=== PATIENT | male | born 1985 | race Caucasian/White ===

== ENCOUNTER → 2021-09-07 02:12 | Outpatient (CLI) | payer OTHER, SELFPAY ==
--- NOTE | 2021-09-07 | DI.RAD_ITS ---
Exam(s) XR KNEE RT 3V AP,LAT,BETTIE EXAM: XR KNEE RT 3V AP,LAT,BETTIE CLINICAL HISTORY: RT KNEE PAIN ACUTE, M25.561. TECHNIQUE: 2D digital imaging was performed. Three views. COMPARISON: No exams were available for comparison FINDINGS: BONES: There is an osteochondral defect of the lateral femoral condyle which appears chronic. No acu te fracture is present. No bony destructive lesion is seen. JOINTS: The knee is normally aligned. A joint effusion is seen. SOFT TISSUE: Normal. IMPRESSION: Joint effusion. Old osteochondral defect of the lateral femoral condyle. DATA REPOSITORY: RADIATION DOSE DELIVERED:
== END ==
PROVIDERS: PCP Nurse Practitioner Family; Visit Provider Nurse Practitioner Family
DX: M25.561 Pain in right knee (principal); M25.461 Effusion, right knee; M21.851 Other specified acquired deformities of right thigh
CPT/HCPCS: 73562

== ENCOUNTER 2021-10-26 16:39 | Emergency (ER) | payer OTHER, SELFPAY ==
[2021-10-26 16:47] VITALS: BP 151/85; PULSE 87; RESP 18; TEMP 37.6; O2SAT 98
--- NOTE | 2021-10-26 18:08 | ED.GENADUL_ITS ---
Discharge Plan Disposition Patient Disposition: HOME Condition: Stable Discharge Details Clinical Impression: Sunburn of second degree Primary Care Provider: Eugenia Buckley ED Provider: Vanessa Arriaga Home Meds and New Rx's Prescriptions: No Action No Known Home Meds Discharge Instructions Instructions: Second-Degree Burn (ED), Acute Wound Care (ED) Additional Instructions: Please keep clean and dry. You may apply topical aloe vera or similar. You may also apply bacitracin or Neosporin which he can get [id number]. Please take Tylenol or Ibuprofen with food every 4-6 hours as needed for pain and swelling. Please keep yourself hydrated. Return for any signs of infection fever. Follow up with primary care provider in 3-5 days. Return to ED sooner if any worsening or concerns. Increase oral fluids.. Referrals: Eugenia Buckley [Primary Care Provider] - 5 days Discharge Data Discharge Date/Time-TO BE ENTERED AT DEPARTURE: 10/26/21 18:29 Medical Decision Making 36-year-old male presents with second-degree sunburn with blisters drainage to h is bilateral shoulders, he does have a first-degree sunburn noted to his chest and back. Patient has no problems breathing and no other complaints at this time he is speaking in full sentences. Discussed sunburn care and blister care with patient who verbalized understanding. We will give bacitracin discussed home care and strict return instructions. Patient verbalized understanding. This text was generated using [employer] dictation system, please disregard any oddities of phrase or misspellings. HPI General Mode of arrival: ambulatory . Date/Time Provider Initiated Documentation: 10/26/21 17:45 . Limitations to Documentation: no limitations . Information obtained by: patient, RN notes reviewed and old records reviewed . HPI Narrative: 36-year-old male presents to the ER with chief complaint of second-degree sunburn with blisters to his bilateral shoulders. This occurred while out in the sun yesterday. He denies any fever chills no surrounding induration or signs of cellulitis. No other complaints at this time. Related Data Home Medications Medication Instructions Recorded Confirmed Unknown [No Known Home Meds] 10/26/21 10/26/21 Allergies Allergy/AdvReac Type Severity Reaction Status Date / Time No Known Allergies Allergy Unverified 10/26/21 16:50 General Stated Complaint: Burn LILIANA: 4 PFSH All Active Problems (Updated 10/26/21 @ 18:13 by Vanessa Arriaga NP) Sunburn of second degree (Acute) Social History Smoking/Tobacco Use Status: Current every day Tobacco Type: e-cigarettes Smoking risk assessment performed?: Yes Alcohol Intake: current Alcohol Intake frequency: 0-2 drinks per day Drug use: Never Substance use type: does not use Do you feel safe at home: Yes Do you feel safe in your relationship?: Yes Exam Skin Rashes: other (Sunburn noted) Full body images: 1. Second-degree sunburn with blisters and drainage noted top of bilateral shoulders. 2. First-degree sunburn noted to the chest and back 3. First-degree sunburn Course Vital Signs Vital signs: Vital Signs Temperature 37.6 C H 10/26/21 16:47 Pulse 87 10/26/21 16:47 Respiratory Rate 18 10/26/21 16:47 Blood Pressure 151/85 H 10/26/21 16:47 Pulse Oximetry 98 10/26/21 16:47 Temperature 37.6 C H 10/26/21 16:47 Temperature Source Temporal Artery Scan 10/26/21 16:47 Pulse 87 10/26/21 16:47 Respiratory Rate 18 10/26/21 16:47 Respiratory Effort Non-Labored 10/26/21 16:50 Blood Pressure 151/85 H 10/26/21 16:47 Blood Pressure Position Sitting 10/26/21 16:47 Pulse Oximetry 98 10/26/21 16:47 Oxygen Delivery Method Room Air 10/26/21 16:47 Oxygen Flow Rate 0 10/26/21 16:47 PAWSS Have you Been Recently Intoxicated or Drunk Within the Last 30 days?: No Have you Ever Experienced Previous Episodes of Alcohol Withdrawal?: No Have you ever Experienced Withdrawal Seizures?: No Have you ever Experienced Delirium Tremens(DT)s?: No Have you ever undergone Alcohol Rehabilitation Treatment (i.e, inpt ot outpatient treatment programs)?: No Have you ever Experienced Blackouts?: No Have you ever Combined Alcohol with other Downers within the last 90 days?: No Have you ever Combined Alcohol with any other Substance of Abuse during the last 90 days?: No Positive Blood Alcohol level on Presentation? [PCS.BAL]: No Evidence of Increased Autonomic Activity (i.e. HR>120, tremor, sweating, agitation, nausea)?: No Result: 0
[2021-10-26] MEDS: Lidocaine 2% Viscous 15 ML CUP MM (18:16)
== END 2021-10-26 18:29 | disposition home or self-care (01) ==
PROVIDERS: Emergency Provider Registered Nurse Emergency; PCP Nurse Practitioner Family
DX: L55.1 Sunburn of second degree (principal); F17.290 Nicotine dependence, other tobacco product, uncomplicated; L55.0 Sunburn of first degree; X32.XXXA Exposure to sunlight, initial encounter
CPT/HCPCS: 99282; 99281

== ENCOUNTER → 2022-02-08 02:02 | Outpatient (CLI) | payer OTHER, SELFPAY ==
--- NOTE | 2022-02-08 08:45 | DI.MRI_ITS ---
Exam(s) MR LOWER JOINT RT WO EXAM: MR LOWER JOINT RT WO CLINICAL HISTORY: RT KNEE PAIN, M25.561, SWELLING, JT EFFUSION ON X-RAY. TECHNIQUE: Multiplanar multisequence MRI was performed. COMPARISON: CR XR KNEE RT 3V AP,LAT,BETTIE from 09/07/2021 FINDINGS: BONES: There is a large osteochondral defect of the lateral femoral condyle large insitu bony fragmen t and surrounding fluid. The fragment measures 17 cm AP by 7 millimeters cephalocaudad by 14 millim eters transverse. The marrow signal is otherwise normal. JOINTS: A large joint effusion is present. There is a large partially calcified loose body seen later ally in the suprapatellar portion of the effusion which measures approximately 2 cm in length. Articular cartilage: Patellofemoral joint: Articular cartilage is unremarkable. Medial femoral tibial joint: Articular cartilage is unremarkable. Lateral femoral tibial joint: Large osteochondral defect within large insitu bony fragment. Large amount of surrounding fluid. Large amount of cartilage absent from this region. There is no cartila ge overlying the defect. Cartilage overlying the lateral tibial plateau is intact. TENDONS: Extensor mechanism: Unremarkable. Medial retinaculum: Unremarkable. Lateral retinaculum: Unremarkable. Popliteus: Unremarkable. MUSCLES: Unremarkable. MENISCI: The medial meniscus is unremarkable. The lateral meniscus is unremarkable. SOFT TISSUES: Bilobed Jeffries's cyst measuring roughly 6.5 cm in length. LIGAMENTS: Anterior Cruciate: Unremarkable. Posterior Cruciate: Unremarkable. Medial Collateral:Unremarkable. Lateral Collateral: Unremarkable. 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 Large joint effusion with loose body likely originating from the lateral femoral condyle. DATA REPOSITORY:
== END ==
PROVIDERS: PCP Nurse Practitioner Family; Visit Provider Nurse Practitioner Family
DX: M93.28 Osteochondritis dissecans other site (principal); M25.48 Effusion, other site
CPT/HCPCS: 73721

== ENCOUNTER 2022-03-25 11:08 | Day surgery (SDC) | payer OTHER, SELFPAY ==
[2022-03-25] VITALS (10 sets, daily range): BP systolic 89–152; BP diastolic 35–98; PULSE 60–74; RESP 14–22; TEMP 36.4–36.7; O2SAT 96–100; BMI 27.4
[2022-03-25] MEDS: Lactated Ringers 1,000 ML 30 ML IV (11:47)
--- NOTE | 2022-03-25 12:00 | ROE_ITS ---
Date of service: 03/25/22 Time of Service: 12:00 Operative Note Operative Note DATE OF PROCEDURE: 03/25/22 PRE-OP DIAGNOSIS: Right knee 1. Osteochondritis dissecans 2. Loose body POST-OP DIAGNOSIS: same PROCEDURE: Right knee 1. Arthroscopic loose body removal, CPT# 78596: 2x large osteochondral fragments 15 x 7 x 8 mm, 10 x 6 x 5 mm that had to be removed through a mini anteromedial arthrotomy. 2. Microfracture, CPT# 58198: Lateral femoral condyle donor site 3. Greater than 2 compartment synovectomy, CPT #74819: Patellofemoral, intercondylar, and lateral compartment SURGEON: Thai Baldwin WEIGHING STATION OPERATOR: None None ANESTHESIA TYPE: Local By Surgeon and General LMA/ETT Refer to Anesthesia Record ESTIMATED BLOOD LOSS: 5 PATHOLOGY: none sent TOURNIQUET TIME: 0 Patient was transported to: PACU Patient's condition: stable Indications: Please see complete medical record for details. Findings: Exam under anesthesia: Significant, rigid flexion contracture about 10-15 degrees. Full flexion. Palpable loose bodies through passive range of motion. Quite stiff and stable varus, valgus, Malcolm anterior drawer. Arthroscopic findings: Moderate effusion with significant abundant inflamed synovitis throughout the patellofemoral, suprapatellar, intercondylar, and lateral areas. 2 quite large osteochondral loose bodies described above. Multiple smaller chondral loose bodies. Large osteochondral defect distal central to medial aspect lateral femoral condyle. Intact lateral meniscus and ACL with some superficial fraying of both near the osteochondral lesion. Intact medial compartment. Chronic sclerotic changes at donor site and rounding and smoothing of loose bodies. Procedure Description: In the operating room, genral anesthesia was induced. The patient was positioned supine on the operating room table. All bony prominences were well- padded. Preoperative antibiotics were administered. The knee was prepped and draped in the usual sterile fashion. The correct patient, procedure, and side of the procedure were all verified prior to incision. Exam under anesthesia was performed. 10 cc of 0.25% bupivacaine containing epinephrine was infiltrated about the planned anteromedial and anterolateral kne e arthroscopy portals. The portals were established and a complete diagnostic arthroscopy was performed with relevant findings detailed above. The initial smaller of the loose bodies was encountered in the suprapatellar pouch. It had chronic changes, poor quality appearing cartilage, rounded in nature, and did not appear amenable to repair. It was grasped with a pituitary rongeur and attempted to be removed through the anteromedial portal. It did not fit at all. The portal was enlarged to accommodate the lesion and a small arthrotomy made and small hemostat used to grasp and remove this loose body. The larger loose body was later found in the lateral gutter, similarly had chronic degenerative changes, and was arthroscopically delivered to the anteromedial area and then similarly grasped and removed similarly with the hemostat. Both were placed into a sterile specimen cup, arthroscopic photo taken, and saved for the patient. The mechanical shaver was used to remove abundant inflamed synovium from the patellofemoral, intercondylar, and lateral compartments. The large defect on the lateral condyle was inspected. The bed was prepared using a curette and shaver to optimize healing the thin sclerotic wall of tissue and establishing stable cartilage margins. A 1.6 mm K wire was then used perpendicular to the lesion to drill multiple sites spanning the bed as microfracture. Appropriate release of bone marrow elements was confirmed with the inflow turned off. The mechanical shaver was used then to thoroughly go throughout the knee and remove any additional smaller loose bodies. Under direct arthroscopic visualization an 18-gauge needle was passed into the knee from superolateral into the suprapatellar pouch. The knee was copiously irrigated with arthroscopic fluid until there was a clear effluent before being drained of all fluid. The anteromedial and anterolateral portals were closed in 3-0 Monocryl in a buried interrupted fashion. 20 cc of 0.25% bupivacaine with epinephrine containing 4 mg of morphine was infiltrated into the knee through the previously placed needle. Mastisol, Steri-Strips, and 4 x 4 gauze were applied over the incisions followed by sterile soft roll. The knee was then wrapped gently with an PATRICK comressive bandage. The patient awoke from anesthesia without complication and was transferred to the recovery room in a stable condition. The flexion contracture will be challenging to treat given chronicity. The large osteochondral lesion of the lateral femoral condyle might be amenable to lateral Bio-Uni versus UKA should the patient have persistent dysfunction.
--- NOTE | 2022-03-25 13:49 | ANES.PREOP_ITS ---
General Info Date of Service Date Performed: 03/25/22 Height: 5 ft 11 in Weight: 89.2 kg Body Mass Index (BMI): 27.4 Surgical Procedure: Operation Date: 03/25/22 13:55 Proposed Procedure Side Surgeon p Knee Arthroscopy w/Loose Body Removal, Microfracture and any other indicated Meniscal, Chondral and Synovial Surgery Right Thai Baldwin MD Meds Allergies and Home Medications Allergies Allergy/AdvReac Type Severity Reaction Status Date / Time No Known Allergies Allergy Verified 03/25/22 11:18 Home Medication Medication Instructions Recorded aspirin 81 mg tablet,delayed 81 mg PO DAILY Prevent blood clot 03/25/22 release 14 days #14 tabs melatonin 5 mg chewable tablet 5 mg PO HS PRN 03/25/22 naproxen 250 mg tablet 250 - 500 mg PO BID PRN #40 tabs 03/25/22 oxycodone 5 mg tablet 5 - 10 mg PO Q4H PRN moderate to 03/25/22 severe pain #18 tabs Current Visit Medications: Current Medications Generic Name Dose Route Start Last Admin Trade Name Colemanq PRN Reason Stop Dose Admin Ringer's Solution 1,000 mls @ 30 mls/hr 03/25/22 06:00 03/25/22 11:47 IV 04/23/22 23:59 30 mls/hr [facility] Administration Cefazolin Sodium/Dextrose 2 gm in 50 mls @ 100 mls/hr 03/25/22 06:00 Ancef Duplex IVPB 03/25/22 16:00 PREOP ALEXIA IV Miscellaneous Supplies 1 each 03/25/22 06:00 Iv Access IV 04/23/22 23:59 DIRECTED ALEXIA Oxycodone HCl 0 mg 03/25/22 08:52 Oxycodone 5 Mg Tab PO Q3H PRN PRN Pain Sodium Chloride 0 ml 03/25/22 06:00 Normal Saline Flush 10 Ml Syr IV 04/23/22 23:59 PRN PRN Sodium Chloride 0 ml 03/25/22 06:00 Normal Saline 10 Ml Vial IJ 04/23/22 23:59 DIRECTED PRN Sterile Water 0 ml 03/25/22 06:00 Water,Injection,Sterile 10 Ml Vial IJ 04/23/22 23:59 DIRECTED PRN PFSH Active Problems Active Problems: Problem Status Onset Code Loose body of right knee M23.41 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 Tobacco Smoking/Tobacco Use Status: Current every day Tobacco Type: e-cigarettes Alcohol Alcohol Intake: current Alcohol intake frequency: 0-2 drinks per day Alcohol type: other Substance Use Substance use: Never Substance use type: does not use Vital Signs and Lab Results Vital Signs Most Recent Vital Signs in EMR: Most Recent Vital Signs Temp Pulse Resp BP Pulse Ox 36.6 C 74 16 147/98 H 99 03/25/22 11:24 03/25/22 11:24 03/25/22 11:24 03/25/22 11:24 03/25/22 11:24 Lab Results Blood Type / Crossmatch: No Data to Display Complete Blood Count: No Data to Display Complete Metabolic Panel: No Data to Display Liver Function Panel: No Data to Display Coagulation Panel: No Data to Display Cardiac Panel: No Data to Display Arterial Blood Gas: No Data to Display Venous Blood Gas: No Data to Display Pancreas Panel: No Data to Display Thyroid Panel: No Data to Display Infectious Disease: No Data to Display Blood Cultures: No Data to Display Toxicology Panel: No Data to Display Anesthesia Assessment and Plan Anesthesia History Personal History: No History of General Anesthesia Family History: No Family History of Anesthesia Complications Exercise Tolerance Exercise Tolerance: Metabolic Equivalents>4 Pertinent Negatives Pertinent Negatives: No Symptoms of GERD, No Major Cardiovascular Symptoms or Complaints and No Major Pulmonary Symptoms or Complaints Cardiac & Pulmonary Exam Cardiac Exam: Normal S1/S2 Heart Sounds Pulmonary Exam: Clear Bilateral Breath Sounds Implantable Cardiac Device Does patient have a Pacemaker or an ICD?: No Airway Exam Known Difficult Airway: No Mallampati Class: 1 Mouth Opening: Normal (> 3cm) Thyromental Distance: Greater than 3 cm Neck Range of Motion: Full ROM Neck Circumference: Normal Teeth Condition: Normal Dentition ASA Classification ASA Score: ASA 2 Emergency Case?: No NPO Status NPO Status: NPO Clears >2 hours, Solids >8 hours Anesthesia Plan Resuscitation Status: Full Code Anesthesia Technique: General Anesthesia Airway Planned: LMA Monitors Used: Standard Monitors
[2022-03-25] MEDS: ceFAZolin 2 GM/50 ML BAG IVPB (14:10)
[2022-03-25] MEDS: Bupivacaine 0.25% Pres-Free W/EPI 30 ML VIAL (14:48)
[2022-03-25] MEDS: MORPHine 4 MG/ML SYR (14:49)
--- NOTE | 2022-03-25 15:16 | W.PM.DSUDISC ---
Date of service: 03/25/22 Time of Service: 15:00 Discharge Plan Disposition Patient Disposition: Home Discharge Details Attending Provider: Thai Baldwin Primary Care Provider: Eugenia Buckley Home Meds and New Rx's Prescriptions: New aspirin 81 mg tablet,delayed release (DR/EC) 81 mg PO DAILY 14 Days Qty: 14 0RF naproxen 250 mg tablet 250 - 500 mg PO BID PRNQty: 40 0RF Rx Instructions: take with a meal oxycodone 5 mg tablet 5 - 10 mg PO Q4H MDD 30 mg PRN (Reason: moderate to severe pain) Qty: 18 0RF No Action melatonin 5 mg Tablet,Chewable 5 mg PO HS PRN Discharge Instructions Additional Instructions: Surgery: Right knee arthroscopy with removal of loose bodies and microfracture for osteochondritis dissecans Activity: Protected weightbearing with crutches for 6 weeks. Advance range of motion as comfort allows. Recommend avoiding sports, pivoting, and squatting for 2-3 months. A physical therapy prescription will be provided separately in the office at follow-up if needed. Prescriptions: Aspirin 81 mg take 1 daily to prevent a blood clot for 14 days Naproxen 250 mg take 1-2 every 12 hours with a meal as needed for moderate pain Oxycodone 5 mg take 1-2 every 4-6 hours as needed for severe pain You may use bkfm-[id number]-ncffycu Tylenol (acetaminophen) as needed for mild pain. These pain medications may be taken all at once or in different combinations as needed. Also, recommend Colace (docusate) as a stool softener as surgery and pain medicine cause constipation. You may try hudb-wof-uhditwj diphenhydramine (Benadryl) 25-50 mg nightly as a sleep aid Dressings: Leave dressing in place for 3 days. May then remove and leave open to air or cover incisions with Band-Aids. May shower after 5 days. Follow-up: 10-[address] Baldwin You may take off the leg compression stockings this evening at home. You may also leave them on a few days longer if you have a history of leg swelling or edema. Let us know right away if you develop any redness, drainage, fevers, chest pain, or trouble breathing. Do not drink alcohol or drive for at least 24 hours after anesthesia. Please call the office during business hours with any questions or concerns. Discharge Orders Discharge Orders: Discharge Order (Routine); Ordered 03/25/22 Ordered By: Thai Baldwin DS: Diagnosis Discharge Diagnosis (1) Loose body of right knee: Status: Acute (2) Osteochondritis dissecans of right knee: Status: Acute
--- NOTE | 2022-03-25 16:09 | W.ANESPOSTOP ---
Postoperative Evaluation Date, Time and Location Date Performed: 03/25/22 Time Performed: 16:09 Patient Location: PACU Vital Signs Most Recent Imported Vital Signs: Most Recent Vital Signs Temp Pulse Resp BP Pulse Ox 36.7 C 69 14 100/78 100 03/25/22 16:00 03/25/22 16:00 03/25/22 16:00 03/25/22 16:00 03/25/22 16:00 Pain Score Most Recent Pain Score: Most Recent Pain Score Pain Level 4 03/25/22 11:24 Assessment Mental Status: Arousable with meaningful communication Airway and Respiratory Function: Patent airway with normal (patient baseline) respiratory exam Cardiovascular Function: Hemodynamically Stable Hydration Status: Adequately Hydrated Nausea & Vomiting: No Nausea or Vomiting Pain: Pain is tolerable per patient Peripheral Nerve Block: Patient did not receive a nerve block
== END 2022-03-25 17:10 | disposition home or self-care (01) ==
PROVIDERS: PCP Nurse Practitioner Family; Visit Provider Student in an Organized Health Care Education/Training Program
PROC: (CPT 29870; principal; 2022-03-25 13:45)
DX: M93.261 Osteochondritis dissecans, right knee (principal); M65.861 Other synovitis and tenosynovitis, right lower leg
CPT/HCPCS: 29879; 29876; J0690; J1100; J1885; J2250; J2270; J2405; J2704

== ENCOUNTER 2022-05-18 14:34 | Outpatient (CLI) | payer OTHER, SELFPAY ==
--- NOTE | 2022-05-18 13:00 | DI.RAD_ITS ---
Exam(s) XR KNEE RT 3V AP,LAT,BETTIE EXAM: XR KNEE RT 3V AP,LAT,BETTIE CLINICAL HISTORY: RIGHT KNEE F/U. TECHNIQUE: 2D digital imaging was performed of the right knee. Three views obtained. AP, lateral an d PA tunnel views were obtained. COMPARISON: CR XR KNEE RT 3V AP,LAT,BETTIE from 09/07/2021 FINDINGS: BONES: No acute fracture is present. No bony destructive lesion is seen. There is again seen osteocho ndral defect in the lateral femoral condyle. The bony fragment is no longer visualized. No loose mariah dy is seen. JOINTS: The knee is normally aligned. There is a small joint effusion. SOFT TISSUE: Normal. IMPRESSION: Large osteochondral defect in the lateral femoral condyle. The previously seen bony fragment is no l onger visualized within the defect. No new joint loose body is seen. DATA REPOSITORY: RADIATION DOSE DELIVERED:
== END 2022-05-18 14:35 | disposition home or self-care (01) ==
LOC: DIORS 14:36
PROVIDERS: PCP Nurse Practitioner Family; Referring Provider Nurse Practitioner Family; Visit Provider Student in an Organized Health Care Education/Training Program
DX: M93.261 Osteochondritis dissecans, right knee (principal); M25.461 Effusion, right knee
CPT/HCPCS: 73562

== ENCOUNTER 2022-06-16 01:39 | Outpatient (CLI) | payer OTHER, SELFPAY ==
--- NOTE | 2022-06-16 08:00 | DI.MRI_ITS ---
Exam(s) MR LOWER JOINT RT WO EXAM: MR LOWER JOINT RT WO CLINICAL HISTORY: R KNEE INJURY,CONTRACTURE,OSTEOCHONDRITIS DISSECANS,M24.561,M93.261. TECHNIQUE: Multiplanar multisequence MRI was performed. COMPARISON: MR MR LOWER JOINT RT WO from 02/08/2022 FINDINGS: The examination is limited due to patient motion artifact. BONES: There is again seen a osteochondral defect in the lateral femoral condyle. No bony fragment i s present. There is mild marrow edema seen at the defect. There is also mild marrow edema seen in t he proximal tibia. JOINTS: Apart from the osteochondral defect in the lateral femoral condyle the articular cartilage is unremarkable. There is a small joint effusion. TENDONS: Extensor mechanism: Unremarkable. Medial retinaculum: Unremarkable. Lateral retinaculum: Unremarkable. Popliteus: Unremarkable. MUSCLES: Unremarkable. MENISCI: The medial meniscus is unremarkable. The lateral meniscus is unremarkable. SOFT TISSUES: Unremarkable. LIGAMENTS: Anterior Cruciate: Unremarkable. Posterior Cruciate: Unremarkable. Medial Collateral:Unremarkable. Lateral Collateral: Unremarkable. OTHER: There is a small popliteal cyst. IMPRESSION: 1. Large osteochondral defect in the lateral femoral condyle. No bony fragment or loose body is seen . 2. No evidence of a meniscal or ligament tear. 3. Small joint effusion and popliteal cyst. DATA REPOSITORY:
== END 2022-06-16 01:59 ==
PROVIDERS: PCP Nurse Practitioner Family; Visit Provider Student in an Organized Health Care Education/Training Program
DX: M25.561 Pain in right knee (principal); M24.561 Contracture, right knee; M93.261 Osteochondritis dissecans, right knee; M25.461 Effusion, right knee; M71.21 Synovial cyst of popliteal space [Baker], right knee
CPT/HCPCS: 73721

== ENCOUNTER 2022-11-10 15:27 | Outpatient (CLI) | payer OTHER, SELFPAY ==
--- NOTE | 2022-11-10 14:00 | DI.RAD_ITS ---
Exam(s) XR KNEE RT 2V AP,LAT EXAM: XR KNEE RT 2V AP,LAT CLINICAL HISTORY: right knee f/u. TECHNIQUE: 2D digital imaging was performed of the right knee. Two views obtained. AP and lateral views were obtained. COMPARISON: CR XR KNEE RT 3V AP,LAT,BETTIE from 05/18/2022 FINDINGS: There is a stable appearance of the right knee. No acute abnormality. There is a joint effusion pre sent. IMPRESSION: No acute abnormality. DATA REPOSITORY: RADIATION DOSE DELIVERED:
== END 2022-11-10 15:28 | disposition home or self-care (01) ==
LOC: DIORS 15:28
PROVIDERS: PCP Nurse Practitioner Family; Referring Provider Nurse Practitioner Family; Visit Provider Student in an Organized Health Care Education/Training Program
DX: M93.261 Osteochondritis dissecans, right knee (principal)
CPT/HCPCS: 73560

== ENCOUNTER 2022-11-25 11:19 | Day surgery (SDC) | payer OTHER, SELFPAY ==
[2022-11-25] VITALS (8 sets, daily range): BP systolic 95–131; BP diastolic 61–96; PULSE 60–73; RESP 14–26; TEMP 36.3–37.1; O2SAT 98–100; BMI 28.3
[2022-11-25] MEDS: Lactated Ringers 1,000 ML 30 ML IV (11:54)
--- NOTE | 2022-11-25 12:04 | W.ANESPRE ---
General Info Date of Service Date Performed: 11/25/22 Height: 5 ft 9.5 in Weight: 88.2 kg Body Mass Index (BMI): 28.3 Surgical Procedure: Operation Date: 11/25/22 13:10 Proposed Procedure Side Surgeon p Knee Arthroscopy w/any indicated meniscal,chondral and synovial surgery/ Probable Loose Body Removal Right Thai Baldwin MD Meds Allergies and Home Medications Allergies Allergy/AdvReac Type Severity Reaction Status Date / Time No Known Allergies Allergy Verified 11/25/22 11:30 Home Medication Medication Instructions Recorded melatonin 5 mg chewable tablet 5 mg PO HS PRN 03/25/22 Current Visit Medications: Current Medications Generic Name Dose Route Start Last Admin Trade Name Freq PRN Reason Stop Dose Admin Ringer's Solution 1,000 mls @ 30 mls/hr 11/25/22 06:00 11/25/22 11:54 IV 12/16/22 23:59 30 mls/hr INFUSION ALEXIA Administration Cefazolin Sodium/Dextrose 2 gm in 50 mls @ 100 mls/hr 11/25/22 06:00 Ancef Duplex IVPB 11/25/22 23:59 PREOP ALEXIA IV Miscellaneous Supplies 1 each 11/25/22 06:00 Iv Access IV 12/16/22 23:59 DIRECTED ALEXIA Sodium Chloride 0 ml 11/25/22 06:00 Normal Saline Flush 10 Ml Syr IV 12/16/22 23:59 PRN PRN Sodium Chloride 0 ml 11/25/22 06:00 Normal Saline 10 Ml Vial IJ 12/16/22 23:59 DIRECTED PRN Sterile Water 0 ml 11/25/22 06:00 Water,Injection,Sterile 10 Ml Vial IJ 12/16/22 23:59 DIRECTED PRN PFSH Active Problems Active Problems: Problem Status Onset Code 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 Loose body of right knee M23.41 Contracture of right knee M24.561 Surgical History Surgical History Hx of arthroscopy of knee Tobacco Smoking/Tobacco Use Status: Current every day Tobacco Type: e-cigarettes Alcohol Alcohol Intake: current Alcohol intake frequency: 0-2 drinks per day Alcohol type: other Substance Use Substance use: Never Substance use type: does not use Vital Signs and Lab Results Vital Signs Most Recent Vital Signs in EMR: Most Recent Vital Signs Temp Pulse Resp BP Pulse Ox 37.1 C 62 16 131/86 100 11/25/22 11:31 11/25/22 11:31 11/25/22 11:31 11/25/22 11:31 11/25/22 11:31 Lab Results Blood Type / Crossmatch: No Data to Display Complete Blood Count: No Data to Display Complete Metabolic Panel: No Data to Display Liver Function Panel: No Data to Display Coagulation Panel: No Data to Display Cardiac Panel: No Data to Display Arterial Blood Gas: No Data to Display Venous Blood Gas: No Data to Display Pancreas Panel: No Data to Display Thyroid Panel: No Data to Display Infectious Disease: No Data to Display Blood Cultures: No Data to Display Toxicology Panel: No Data to Display Anesthesia Assessment and Plan Anesthesia History Personal History: No History of Anesthesia Complications Family History: No Family History of Anesthesia Complications Exercise Tolerance Exercise Tolerance: Metabolic Equivalents>4 Pertinent Negatives Pertinent Negatives: No Symptoms of GERD, No Major Cardiovascular Symptoms or Complaints, No Major Pulmonary Symptoms or Complaints and No History of CVA/TIA Cardiac & Pulmonary Exam Cardiac Exam: Normal S1/S2 Heart Sounds Pulmonary Exam: Clear Bilateral Breath Sounds Implantable Cardiac Device Does patient have a Pacemaker or an ICD?: No Airway Exam Known Difficult Airway: No Mallampati Class: 1 Mouth Opening: Normal (> 3cm) Thyromental Distance: Greater than 3 cm Neck Range of Motion: Full ROM Neck Circumference: Normal Teeth Condition: Generalized Poor Dentition and Loose or Chipped (see below, nothing loose per pt) Tooth Numberin. Broken ASA Classification ASA Score: ASA 2 Emergency Case?: No NPO Status NPO Status: NPO Clears >2 hours, Solids >8 hours Anesthesia Plan Resuscitation Status: Full Code Anesthesia Technique: General Anesthesia Airway Planned: LMA Monitors Used: Standard Monitors Preoperative Comments:: No vaping today.
--- NOTE | 2022-11-25 12:35 | W.PM.DSUDISC ---
Date of service: 11/25/22 Time of Service: 15:00 Discharge Plan Disposition Patient Disposition: Home Condition: Stable Discharge Details Attending Provider: Thai Baldwin Primary Care Provider: Eugenia Buckley Home Meds and New Rx's Prescriptions: New naproxen 250 mg tablet 250 - 500 mg PO BID PRNQty: 40 0RF Rx Instructions: take with a meal aspirin 81 mg tablet,delayed release (DR/EC) 81 mg PO DAILY 7 Days Qty: 7 0RF Continued melatonin 5 mg Tablet,Chewable 5 mg PO HS PRN Discharge Instructions Additional Instructions: Surgery: Right knee arthroscopy with removal of recurrent loose bodies, partial lateral meniscectomy, and extensive debridement Activity: Weightbearing as tolerated. Advance range of motion as comfort allows. No knee brace or crutches needed as soon as comfortable. Recommend avoiding sports, pivoting, and deep squatting for about 6-8 weeks. A physical therapy prescription will be provided separately in the office if needed. Prescriptions: Aspirin 81 mg take 1 daily to prevent a blood clot for 7 days Naproxen 250 mg take 1-2 every 12 hours with a meal as needed for moderate pain You may use [id number] Tylenol (acetaminophen) as needed for mild pain. These pain medications may be taken all at once or in different combinations as needed. Also, recommend Colace (docusate) as a stool softener as surgery and pain medicine cause constipation. You may try pcan-aym-gvunpaz diphenhydramine (Benadryl) 25-50 mg nightly as a sleep aid Dressings: Leave dressing in place for 3 days. May then remove and leave open to air or cover incisions with Band-Aids. Leave the sticky Steri-Strips in place until they fall off or remove them after you shower. May shower after 5 days. Follow-up: 10-[address] Baldwin You may take off the leg compression stockings this evening at home. You may also leave them on a few days longer if you have a history of leg swelling or edema. Let us know right away if you develop any redness, drainage, fevers, chest pain, or trouble breathing. Do not drink alcohol or drive for at least 24 hours after anesthesia. Please call the office during business hours with any questions or concerns. Discharge Orders Discharge Orders: Discharge Order (Routine); Ordered 11/25/22 Ordered By: Thai Baldwin DS: Diagnosis Discharge Diagnosis (1) Loose body of right knee: Status: Acute (2) Osteochondritis dissecans of right knee: Status: Acute (3) Contracture of right knee: Status: Acute
--- NOTE | 2022-11-25 12:36 | W.PM.OP ---
Date of service: 11/25/22 Time of Service: 13:00 Operative Note Operative Note DATE OF PROCEDURE: 11/25/22 PRE-OP DIAGNOSIS: Right knee 1. Osteochondritis dissecans 2. Recurrent loose body POST-OP DIAGNOSIS: same Right knee 1. Osteochondritis dissecans 2. Recurrent loose bodies 3. Lateral meniscal tear: Anterior and posterior horns 4. Partial ACL tear degeneration 5. Lateral femoral condyle chondromalacia 6. Suprapatellar adhesions 7. Knee contracture PROCEDURE: Right knee 1. Arthroscopic removal of loose bodies, CPT# 40625: 1x large solid osteochondral fragment about 11 x 10 x 6 mm ovoid and 1x softer meniscal or chondral medium about 6 x 5 x 4 mm 2. Partial lateral meniscectomy, CPT #66830 3. Extensive debridement, CPT #27197: Suprapatellar lysis of adhesions, debridement partial ACL tearing, synovectomy patellofemoral, intercondylar, and posterior lateral compartment, removal of numerous smaller synovial loose body fragments SURGEON: Thai Baldwin ASSISTANT PROFESSOR SURGICAL TECHNOLOGY: None None ANESTHESIA TYPE: Local By Surgeon and General LMA/ETT Refer to Anesthesia Record ESTIMATED BLOOD LOSS: 5 PATHOLOGY: none sent TOURNIQUET TIME: 0 COMPLICATIONS: None Patient was transported to: PACU Patient's condition: stable Indications: Please see complete medical record for details. Findings: Exam under anesthesia: Significant, rigid flexion contracture similar to prior about 10 degrees. Majority full flexion. No palpable loose bodies. Still quite stiff and as a result stable varus, valgus, Malcolm anterior drawer. Arthroscopic findings: Impressively large effusion, which the patient stated began about a day ago after the loose body engaging cause pain somewhat laterally. Significant and abundant inflamed synovitis but through the patellofemoral, anterior and intercondylar areas, medial and lateral compartment, and posterior lateral compartment. Moderate suprapatellar adhesions hiding the osteochondral large loose body. Smaller medium soft or loose body hiding in the posterior lateral synovitis. Prior osteochondral site with thin but majority covered fibrocartilage from prior microfracture surgery relatively smooth. Fairly significant partial lateral meniscus tearing involving the posterior horn and lateral horn, which seem to correspond to engaging the lateral femoral condyle defect through flexion extension. Moderate grade degeneration and partial intrasubstance tearing ACL near the lateral femoral condyle seemingly caused again by the adjacent lesion. Intact PCL. Remainder lateral femoral condyle cartilage with grade 2-3 diffuse changes. Preserve medial compartment cartilage and meniscus. Procedure Description: In the operating room, genral anesthesia was induced. The patient was positioned supine on the operating room table. All bony prominences were well-padded. Preoperative antibiotics were administered. The knee was prepped and draped in the usual sterile fashion. The correct patient, procedure, and side of the procedure were all verified prior to incision. Exam under anesthesia was performed. Chronic flexion contracture remained cannot be improved with gentle steady extension manipulation. 10 cc of 0.25% bupivacaine containing epinephrine was infiltrated about the previous anteromedial and anterolateral knee arthroscopy portals. The large effusion was drained taking care to inspect the outgoing fluid for the known loose body. The portals were established and a complete diagnostic arthroscopy was performed with relevant findings detailed above. The mechanical shaver was used to resect significant synovitis throughout the patellofemoral and anterior intercondylar areas. The lateral meniscus and ACL were then probed and debrided to stable tissue margins of the torn tissue. The OCD site was probed and the fibrocartilage allowed to remain. About the posterior medial margin there was some loose cartilage flap that was resected with a shaver as well. The loose body was expected to be in the lateral or posterior lateral compartments. Once the lateral and intercondylar area work was done, the arthroscope was directed from the anterior medial portal into the posterior lateral compartment. There was a small to medium loose body somewhat soft?appearing adherent to the posterior lateral capsule. It was unable to be agitated or sucked into the anterior knee. It cannot be reached blindly. With the knee in flexion, taking care to work anterior to the biceps femoris and therefore peroneal tendon, a needle was used to localize a posterior lateral portal, which was then established with switching sticks, the camera switched to the posterior lateral compartment viewing this loose body more clearly. The mechanical shaver was then passed from anterior medial and posterior lateral over a half pipe, used to debride the fairly significant synovitis attempt removal of loose body. The curved pituitary rongeur was then brought over and used to securely grab and remove this body. It was relatively ovoid, but soft and not the fragment of concern on the imaging. The camera and working portals were switched and the debridement of the posterior lateral compartment was completed. The arthroscope was thoroughly directed around the remainder of the knee again without the loose body being seen in any obvious area. Mechanical shaver was then used to thoroughly irrigate and debride the knee of some additional loose synovial and fibrous soft loose bodies. The lateral compartment was debrided and last time after switching working and viewing portals debriding the lateral meniscus posterior and anterior horns to a stable margin as well as ensuring no loose impending additional chondral loose bodies, and the ACL substance a bit more to a smooth margin not to impinge in the notch. The arthroscope was then directed into the suprapatellar pouch from the anterior medial portal. The far proximal pouch adhesions were then resected additionally revealing finally the large solid ovoid osteochondral loose body. It was grabbed with the pituitary rongeur and then removed under direct visualization through the anterior medial portal which had been previously expanded to accommodate the fragment size. The suprapatellar pouch adhesions were thoroughly debrided alternating and working and viewing portals to stable tissue margin. The knee was then copiously irrigated with the arthroscopy pump and mechanical shaver until all appreciable loose body material had been removed. The knee was thoroughly inspected again and all compartments including posterior lateral for any additional loose bodies, loose or impending cartilage flaps, or additional meniscus or ligament tearing worth intervention. Of note, in the medial gutter of note there was some early marginal osteophyte formation with the cartilage given an ovoid appearance as it extended into the gutter. Although the majority and significant degenerative changes are lateral, the addition of degeneration to the ACL, this early but notable medial arthrosis, and rigid flexion contracture probably make the most appropriate knee replacement surgery a total knee arthroplasty instead of a partial lateral unicondylar knee arthroplasty or lateral cartilage procedure. Under direct arthroscopic visualization an 18-gauge needle was passed into the knee from superolateral into the suprapatellar pouch. The knee was copiously irrigated with arthroscopic fluid until there was a clear effluent before being drained of all fluid. The anteromedial, anterolateral, and posterolateral portals were closed in 3-0 Monocryl in a buried interrupted fashion. 10 cc of 0.5% bupivacaine and epinephrine was infiltrated about the posterior lateral portal. 20 cc of 0.25% bupivacaine containing 4 mg of morphine was infiltrated into the knee through the previously placed needle. Mastisol, Steri-Strips, and 4 x 4 gauze were applied over the incisions followed by sterile soft roll. The knee was then wrapped gently with an PATRICK comressive bandage. The patient awoke from anesthesia without complication and was transferred to the recovery room in a stable condition. The flexion contracture will be challenging to treat given chronicity. The large osteochondral lesion of the lateral femoral condyle might be amenable to lateral Bio-Uni versus UKA should the patient have persistent dysfunction.
[2022-11-25] MEDS: ceFAZolin 2 GM/50 ML BAG IVPB (12:44)
[2022-11-25] MEDS: Bupivacaine 0.5% Pres-Free W/EPI 30 ML VIAL (13:16)
[2022-11-25] MEDS: Bupivacaine 0.25% Pres-Free 10 ML VIAL (13:16)
--- NOTE | 2022-11-25 14:50 | ANES.POST_ITS ---
Postoperative Evaluation Date, Time and Location Date Performed: 11/25/22 Time Performed: 14:47 Patient Location: PACU Vital Signs Most Recent Imported Vital Signs: Most Recent Vital Signs Temp Pulse Resp BP Pulse Ox 36.5 C 64 21 95/61 L 100 11/25/22 14:42 11/25/22 14:42 11/25/22 14:42 11/25/22 14:42 11/25/22 14:42 Pain Score Most Recent Pain Score: Most Recent Pain Score Pain Level 0 11/25/22 11:31 Assessment Mental Status: Arousable with meaningful communication Airway and Respiratory Function: Patent airway with normal (patient baseline) respiratory exam Cardiovascular Function: Hemodynamically Stable Hydration Status: Adequately Hydrated Nausea & Vomiting: No Nausea or Vomiting Pain: Pain is tolerable per patient (/) Peripheral Nerve Block: Patient did not receive a nerve block Postoperative Comments:: Upon discussion with patient re: post op status I noted something stuck to his upper lip. With further inspection, it was determined to be part of tooth #21 that had broken off. Tooth 21 was still intact after LMA removal and OA insertion. 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 OA was not removed until patient opened his mouth independently per RN. Discussed the broken tooth with the patient and he agreed that his teeth are not strong and in poor shape. Dr. Baldwin also made aware.
== END 2022-11-25 15:54 | disposition home or self-care (01) ==
PROVIDERS: PCP Nurse Practitioner Family; Visit Provider Student in an Organized Health Care Education/Training Program
PROC: (CPT 29870; principal; 2022-11-25 13:00)
DX: M93.261 Osteochondritis dissecans, right knee (principal); M24.561 Contracture, right knee; M94.261 Chondromalacia, right knee
CPT/HCPCS: 29876; 29881; J0690; J1100; J1885; J2270; J2405; J2704

== ENCOUNTER 2023-06-16 09:13 | Emergency (ER) | payer SELFPAY ==
[2023-06-16 09:16] VITALS: BP 144/74; PULSE 54; RESP 18; TEMP 36.9; O2SAT 100
[2023-06-16] MEDS: Benzocaine 20% Gel 30 GM JAR MM (09:36)
--- NOTE | 2023-06-16 09:36 | ED.GENADUL_ITS ---
Discharge Plan Disposition Patient Disposition: Home Discharge Details Clinical Impression: Abscess, dental Primary Care Provider: Eugenia Buckley ED Provider: Jeanna Dougherty Home Meds and New Rx's Prescriptions: New amoxicillin-pot clavulanate 600-42.9 mg/5 mL suspension for reconstitution 7.3 ml PO Q12H 10 Days Qty: 146 0RF No Action melatonin 5 mg Tablet,Chewable 5 mg PO HS PRN Discharge Instructions Additional Instructions: I encourage you to follow-up with your dentist as scheduled, taking an earlier appointment as possible. Take antibiotics for the full course as prescribed. Use a salt water rinse daily, especially after eating. You may use ibuprofen 600 mg every 8 hours as needed for pain control. Return to emergency care if you develop new fevers, vision changes, swelling under tongue, difficulty swallowing, or if you are very worried and need to be rechecked again immediately Stand Alone Forms: Work Release HPI General Date/Time Provider Initiated Documentation: 06/16/23 09:14 . HPI Narrative: Tiago is a 37-year-old male with history of dental issues who presents to the emergency department for evaluation of right upper jaw pain and swelling. He reports that started couple days ago, last night he developed an area of swelling on his gumline. This morning he woke up and he had swelling to his right cheek. He denies associated fever/chills, vision changes, ear pain, difficulty swallowing, swelling under his tongue, voice change. He has been taking ibuprofen for discomfort. He has an appoint with dentist on August 09, is currently on the wait list. No recent antibiotic use. Drinks 2 drinks of alcohol daily, vapes regularly. Denies drug use. Related Data Home Medications Medication Instructions Recorded Confirmed melatonin 5 mg chewable tablet 5 mg PO HS PRN 03/25/22 06/16/23 amoxicillin 600 mg-potassium 7.3 ml PO Q12H 10 days #146 mL 06/16/23 clavulanate 42.9 mg/5 mL oral suspension Previous Rx's Medication Instructions Recorded amoxicillin 600 mg-potassium 7.3 ml PO Q12H 10 days #146 mL 06/16/23 clavulanate 42.9 mg/5 mL oral suspension Allergies Allergy/AdvReac Type Severity Reaction Status Date / Time No Known Allergies Allergy Verified 06/16/23 09:18 General Stated Complaint: DentalOral LILIANA: 4 Review of Systems Narrative: see HPI Exam Const General: cooperative, healthy appearing, comfortable and no acute distress HENMT Head: normal to inspection Face and sinus: other (mild swelling noted to R cheek, no periorbital edema) Mouth: lip normal, tongue normal and moist mucous membranes Teeth and gingiva: poor dentition and other (2 mm area of fluctuance above R upper canine) Throat: posterior oropharynx normal and uvula midline Eyes General: appearance normal, both eyes and all related structures Resp Effort & Inspection: normal respiratory effort and able to speak in complete sentences Course Vital Signs Vital signs: Vital Signs Temperature 36.9 C 06/16/23 09:16 Pulse 54 L 06/16/23 09:16 Respiratory Rate 18 06/16/23 09:16 Blood Pressure 144/74 H 06/16/23 09:16 Pulse Oximetry 100 06/16/23 09:16 Temperature 36.9 C 06/16/23 09:16 Temperature Source Skin 06/16/23 09:16 Pulse 54 L 06/16/23 09:16 Respiratory Rate 18 06/16/23 09:16 Respiratory Effort Normal, Non-Labored 06/16/23 09:18 Blood Pressure 144/74 H 06/16/23 09:16 Pulse Oximetry 100 06/16/23 09:16 Oxygen Delivery Method Room Air 06/16/23 09:16 Oxygen Flow Rate 0 06/16/23 09:16 Pain Level 6 06/16/23 09:16 Procedures Abscess I/D Site: Other (gumline) Side (if applicable): Right Local Anesthetic: Other Anesthetic (benzocaine topical) Technique: Needle Aspiration Amount of fluid expressed (mL): 1 Irrigation: No Packing used?: None Complications: Bleeding (scant, controlled iwht gauze) Medical Decision Making Tiago is a 37-year-old male with history of dental issues who presents to the emergency department for evaluation of right upper jaw pain and swelling. He reports that started couple days ago, last night he developed an area of swelling on his gumline. This morning he woke up and he had swelling to his right cheek. He denies associated fever/chills, vision changes, ear pain, difficulty swallowing, swelling under his tongue, voice change. He has been taking ibuprofen for discomfort. He has an appoint with dentist on August 09, is currently on the wait list. No recent antibiotic use. Drinks 2 drinks of alcohol daily, vapes regularly. Denies drug use. Physical exam remarkable for 2 mm diameter round fluctuant area above left canine tooth. Extensive dental decay throughout. No trismus. No swelling under tongue. Clear voice. History presentation consistent with uncomplicated dental abscess. No red flags concerning for deep space infection, Jeff's angina, or other serious complication indicating need for labs or imaging. Abscess was lanced using 18- gauge needle after topical anesthesia with hurricaine, scant serosanguineous drainage noted. Patient tolerated procedure well. Will treat with Augmentin. Patient is unable to swallow pills, has requested liquid. Reviewed discharge instructions with patient, including importance of follow-up with dental and red flags indicate need for return to emergency care. He is agreeable to plan of care. Quality:SDOH Health Related Social Needs: Health related social needs food insecurity PFSH All Active Problems (Updated 06/16/23 @ 09:52 by Jeanna Llanos) Abscess, dental (Acute) Osteochondritis dissecans of right knee (Acute) Contracture of right knee (Acute) Loose body of right knee (Acute) Surgical History Hx of arthroscopy of knee Social History Smoking/Tobacco Use Status: Current every day Tobacco Type: e-cigarettes Smoking risk assessment performed?: Yes Alcohol Intake: current Alcohol Intake frequency: 0-2 drinks per day Alcohol type: other Drug use: Never Substance use type: does not use Housing: house Current gender identity: male Do you feel safe at home: Yes Do you feel safe in your relationship?: Yes
[2023-06-16 09:41] VITALS: BP 144/74; PULSE 54; RESP 18; TEMP 36.9; O2SAT 100
== END 2023-06-16 10:33 | disposition home or self-care (01) ==
LOC: ER 10:27
PROVIDERS: Emergency Provider Nurse Practitioner Family; PCP Nurse Practitioner Family
DX: K04.7 Periapical abscess without sinus (principal); F17.290 Nicotine dependence, other tobacco product, uncomplicated
CPT/HCPCS: 10160; 99283

== ENCOUNTER 2024-09-29 18:27 | Emergency (ER) | payer SELFPAY ==
[2024-09-29 18:30] VITALS: BP 149/90; PULSE 67; RESP 20; TEMP 36.8; O2SAT 98
--- NOTE | 2024-09-29 18:30 | DI.CT_ITS ---
Exam(s) CT ABDOMEN PELVIS W EXAM: CT ABDOMEN PELVIS W CLINICAL HISTORY: left lower abdominal tenderness. TECHNIQUE: Imaging Protocol: Axial computed tomography images with coronal and sagittal reformatted images were created and reviewed CONTRAST MATERIAL: Intravenous: Omnipaque-350 75cc Oral: None COMPARISON: No exams were available for comparison FINDINGS: VISUALIZED LUNG BASES: No nodules nor pleural effusions evident. ABDOMEN: There is no ascites. LIVER: There are no focal hepatic lesions evident. No dilated intrahepatic ducts. GALLBLADDER/BILIARY: No obvious gallbladder pathology. CBD is not dilated. PANCREAS: No evidence of pancreatic mass nor dilatation of the pancreatic duct. SPLEEN: Spleen is not enlarged. No obvious intrasplenic lesions. Splenic and portal veins are patent. ADRENALS: There are no significant adrenal masses. KIDNEYS:No cysts evident. No solid renal masses. No calculi nor hydronephrosis.. ABDOMINAL AORTA: Abdominal aorta is not enlarged. LYMPH NODES:There is no retroperitoneal nor paraaortic adenopathy. ABDOMINAL WALL: No evidence of significant anterior abdominal wall nor inguinal hernia. PELVIS: GI: No evidence of appendicitis.There is sigmoid diverticulosis. There is acute diverticulitis in the low sigmoid. There is an inflamed diverticulum evident off the inferior wall of the colon which exhibits surrounding streaking but no evidence of obvious perforation nor abscess. There is no free fluid. There is no abnormal thickening of the nearby bladder wall nor gas in the bladder lumen to suggest fistulous communication. LYMPH NODES: There is no intrapelvic nor inguinal adenopathy. REPRODUCTIVE: Prostate gland normal size. URINARY BLADDER: Unremarkable. No calculi nor masses nor intraluminal gas. Pelvic ureters are not dilated OSSEOUS: No fractures and no significant osseous lesions. IMPRESSION: 1. There are findings consistent with acute diverticulitis in the low sigmoid rectosigmoid region as described above. No obvious perforation nor abscess at this time. 2. Appendix unremarkable Report called by myself to ER physician 09/29/2024 at 7:18 p.m. RADIATION DOSE DELIVERED: 472.98mGy.cm Total DLP DATA REPOSITORY: All CT scans at this facility are submitted to the National Radiology Data Registry (NRDR) Dose Index Registry (DIR) with the [employer] ([employer]). RADIATION OPTIMIZATION: All CT scans at this facility use at least one of these dose optimization techniques: automated exposure control; mA and/or kV adjustment per patient size (includes targeted exams where dose is matched to clinical indication); or iterative reconstruction.
--- NOTE | 2024-09-29 18:44 | ED.GENADUL_ITS ---
Discharge Plan Disposition Patient Disposition: Home Condition: Stable Discharge Details Clinical Impression: Diverticulitis Primary Care Provider: Eugenia Buckley ED Provider: Derrick Brock Home Meds and New Rx's Prescriptions: New amoxicillin 875 mg tablet 875 mg PO TID 7 Days Qty: 21 0RF Continued melatonin 5 mg Tablet,Chewable 5 mg PO HS PRN Discharge Instructions Instructions: Diverticulitis Additional Instructions: Your CAT scan showed you have diverticulitis. Take the antibiotic as prescribed. If not improving within a week follow-up with your primary care provider. He feels significantly more ill, have high fevers or new symptoms such as persistent vomiting return to the emergency department for reevaluation. HPI General Mode of arrival: ambulatory . Date/Time Provider Initiated Documentation: 09/29/24 18:28 . Limitations to Documentation: no limitations . Information obtained by: patient . History of Present Illness 39 year old M presents to the emergency department with the chief complaint of abdominal pain, constipation, described as moderate, Patient started experiencing this day(s) (2) and it has been constant. No relieving factors improve symptom(s), No exacerbating factors reported . Patient notes no other symptoms.. Patient did receive the following treatments prior to arrival, none Related Data Home Medications ?Medication ?Instructions ?Recorded ?Confirmed melatonin 5 mg chewable tablet 5 mg PO HS PRN 03/25/22 09/29/24 amoxicillin 875 mg tablet 875 mg PO TID 7 days #21 tab s 09/29/24 Previous Rx's ?Medication ?Instructions ?Recorded amoxicillin 875 mg tablet 875 mg PO TID 7 days #21 tab s 09/29/24 Allergies Allergy/AdvReac Type Severity Reaction Status Date / Time No Known Allergies Allergy Verified 09/29/24 18:34 General Stated Complaint: Abd Prob LILIANA: 3 Review of Systems All systems reviewed & are unremarkable except as noted in HPI and below Constitutional Constitutional: Denies chills, Denies fever(s) and Denies weakness Cardiovascular Cardiovascular: Denies chest pain and Denies dyspnea Respiratory Respiratory: Denies cough and Denies dyspnea Gastrointestinal Gastrointestinal: Reports abdominal pain, Reports constipation, Denies nausea and Denies vomiting Neurologic Neurologic: Denies weakness Exam Const General: no acute distress Orientation: alert HENMT Head: normal to inspection Ears: external ears normal General nose exam: external nose normal Mouth: moist mucous membranes Eyes General: appearance normal, both eyes and all related structures Neck Neck: normal visual inspection Resp Effort & Inspection: normal respiratory effort and able to speak in complete sentences Cardio Rate: regular rate GI Inspection: non-distended Palpation: soft, not rigid and tender Skin General skin exam: no rashes or lesions noted Neuro General: patient alert and patient oriented x3 Extrem General: normal to inspection Psych Mental Status: mental status grossly normal Course Vital Signs Vital signs: Vital Signs Temperature 36.8 C 09/29/24 18:30 Pulse 67 09/29/24 18:30 Respiratory Rate 20 09/29/24 18:30 Blood Pressure 149/90 H 09/29/24 18:30 Pulse Oximetry 98 09/29/24 18:30 Temperature 36.8 C 09/29/24 18:30 Temperature Source Oral 09/29/24 18:30 Pulse 67 09/29/24 18:30 Respiratory Rate 20 09/29/24 18:30 Blood Pressure 149/90 H 09/29/24 18:30 Blood Pressure Position Sitting 09/29/24 18:30 Pulse Oximetry 98 09/29/24 18:30 Oxygen Delivery Method Room Air 09/29/24 18:30 Oxygen Flow Rate 0 09/29/24 18:30 Pain Level 3 09/29/24 18:30 Medical Decision Making 39-year-old male who denies any chronic medical problems comes in with several days of constipation and left lower quadrant pain. Denies any vomiting or fevers, no chest pain or difficulty breathing. No urinary symptoms and no bloody bowel movements. He says he tried MiraLAX with minimal relief. On exam he is in no distress. His abdomen is soft and nondistended. He has tenderness in the left lower quadrant otherwise no tenderness elsewhere in the abdomen. Given the tenderness we will proceed with CBC, CMP and CT abdomen pelvis to evaluate (such as diverticulitis. Will treat his symptoms with Colace and lactulose. Imaging shows simple diverticulitis without perforation or abscess. Patient is stable. White count is 14. Will initiate antibiotics with Augmentin. He is stable for discharge and will follow-up with his PCP if not improving within a week return precautions given PFSH All Active Problems (Updated 09/29/24 @ 20:01 by Derrick Brock MD) Diverticulitis (Chronic) Osteochondritis dissecans of right knee (Acute) Contracture of right knee (Acute) Loose body of right knee (Acute) Surgical History Hx of arthroscopy of knee Social History Smoking/Tobacco Use Status: Current every day Tobacco Type: e-cigarettes Smoking risk assessment performed?: Yes Alcohol Intake: current Alcohol Intake frequency: 0-2 drinks per day Alcohol type: beer Drug use: Never Substance use type: does not use Housing: house Current gender identity: male Do you feel safe at home: Yes Do you feel safe in your relationship?: Yes
[2024-09-29] MEDS: Omnipaque 350 MG/ML 100 ML BTL IJ (18:46)
[2024-09-29] MEDS: Normal Saline - Diluent 50 ML VIAL IJ (18:47)
[2024-09-29 18:58] VITALS: BP 149/90; PULSE 67; RESP 20; TEMP 36.8; O2SAT 98
[2024-09-29 19:02] LABS: Abs Immature Grans 0.05 10^3/uL (0.0-0.06); Absolute Basophil Count 0.06 10^3/uL (0.0-0.2); Absolute Monocyte Count 0.88 10^3/uL (0.1-0.8); Basophils % 0.4 %; Eosinophils % 1.3 %; HGB 14.1 g/dL (13.5-17.5); Immature Grans % 0.4 %; Lymphocytes % 12.2 %; MCH 29.7 pg (27.0-33.0); MCHC 33.6 % (32.0-36.0); MCV 88 fL (80-95); MPV 9.8 fL (8.0-11.0); Monocytes % 6.2 %; Neutrophils % 79.5 %; Platelet Count 293 10^3/uL (130-400); RBC 4.75 10^6/uL (4.36-5.78); RDW 12.3 % (11.8-14.1); RDW-SD 39.8 fL; WBC 14.13 10^3/uL (4.4-10.8)
[2024-09-29] MEDS: Docusate Sodium 100 MG/10 ML CUP PO (19:03)
[2024-09-29] MEDS: Lactulose 20 GM/30 ML CUP PO (19:03)
[2024-09-29 19:13] LABS: Absolute Eosinophil Count 0.18 10^3/uL (0.0-0.7); Absolute Lymphocyte Count 1.72 10^3/uL (1.2-3.4); Absolute Neutrophil Count 11.23 10^3/uL (1.2-6.7)
[2024-09-29 19:36] LABS: ALT 32 U/L (16-63); AST 17 U/L (15-37); Albumin 4.3 g/dL (3.4-5.0); Alkaline Phosphatase 112 U/L (46-116); Anion Gap 5.2 mmol/L (3-11); BUN 15 mg/dL (7-18); Bilirubin, Total 1.3 mg/dL (0.2-1.0); CO2 31.8 mmol/L (21.0-32.0); Calcium 9.2 mg/dL (8.5-10.1); Chloride 100 mmol/L (98-107); Estimated GFR 96.97 (mL/min/1.73m2); Glucose 116 mg/dL (74-106); Magnesium 2.2 mg/dL (1.8-2.4); Potassium 4.1 mmol/L (3.5-5.1); Sodium 137 mmol/L (136-145); TSH (W/Ref FT4) 0.95 uIU/mL (0.36-3.74); Total Protein 7.7 g/dL (6.4-8.2)
[2024-09-29 19:58] LABS: Lipase 27 U/L (<78)
[2024-09-29] MEDS: Amoxicillin 875/Clav. 125 TAB PO (20:27)
[2024-09-29 20:28] VITALS: BP 136/89; PULSE 68; RESP 18; O2SAT 98
== END 2024-09-29 20:27 | disposition home or self-care (01) ==
LOC: ER 20:15
PROVIDERS: Emergency Provider Emergency Medicine; PCP Nurse Practitioner Family
DX: K57.92 Diverticulitis of intestine, part unspecified, without perforation or abscess without bleeding (principal); R10.32 Left lower quadrant pain
CPT/HCPCS: 99284; 99285; 80053; 83690; 74177; 83735; 84443; 85025; J3490

== ENCOUNTER 2024-10-11 20:19 | Emergency (ER) | payer OTHER, SELFPAY ==
[2024-10-11 20:20] VITALS: BP 153/89; PULSE 84; RESP 16; TEMP 36.9; O2SAT 98
[2024-10-11] MEDS: Dexamethasone 10 MG/ML VIAL PO (20:44)
[2024-10-11] MEDS: Cyclobenzaprine 10 MG TAB, 3 TABS/BTL PO (20:44)
[2024-10-11] MEDS: Ketorolac 15 MG/ML VIAL 7.5 MG IM (20:45)
--- NOTE | 2024-10-15 20:28 | ED.GENADUL_ITS ---
Discharge Plan Disposition Patient Disposition: Home Condition: Stable Discharge Details Clinical Impression: Lumbar strain Primary Care Provider: Eugenia Buckley ED Provider: Eleanor Harvey Home Meds and New Rx's Prescriptions: New cyclobenzaprine 10 mg tablet 10 mg PO TID PRNQty: 15 0RF Continued melatonin 5 mg Tablet,Chewable 5 mg PO HS PRN Discharge Instructions Instructions: Back Muscle Strain (DC) Additional Instructions: Take Flexeril as needed for musculoskeletal pain do not operate your vehicle or consume alcohol on this medication as it may make you very drowsy Take Motrin 400 mg every 8 hours with food Take Tylenol 650 mg every 6 hours for breakthrough pain Recheck in 1 week with primary care physician and return immediately should you have changes in bowel or bladder strength or sensation changes, or should any new concerns arise Stand Alone Forms: Work Release Discharge Data Discharge Date/Time-TO BE ENTERED AT DEPARTURE: 10/11/24 20:58 HPI General Date/Time Provider Initiated Documentation: 10/11/24 20:28 . HPI Narrative: This 39-year-old male presents with injury to lower back lifting heavy object today. He denies any significant radiation. He states he has pain with any sort of movement and took ibuprofen prior to arrival and applied Biofreeze without relief in symptoms. He denies changes in bowel or bladder or weakness to his extremities he denies any radiation of pain aside from to his sides. Denies any abdominal pain or urinary symptoms. Related Data Home Medications ?Medication ?Instructions ?Recorded ?Confirmed melatonin 5 mg chewable tablet 5 mg PO HS PRN 03/25/22 10/11/24 cyclobenzaprine 10 mg tablet 10 mg PO TID PRN #15 tabs 10/11/24 Previous Rx's ?Medication ?Instructions ?Recorded cyclobenzaprine 10 mg tablet 10 mg PO TID PRN #15 tabs 10/11/24 Allergies Allergy/AdvReac Type Severity Reaction Status Date / Time No Known Allergies Allergy Verified 10/11/24 20:22 General Stated Complaint: Nk/Back Pain LILIANA: 4 Exam Narrative Exam Narrative: Alert and oriented 39-year-old male in acute discomfort no respiratory distress distal pulses intact all 4 extremities no abdominal bruit or pulsatile mass no flank pain neurovascularly intact all 4 extremities ambulatory with steady gait strength and sensation intact distally reproducible tenderness to lumbar spine on assessment no CVA tenderness Course Vital Signs Vital signs: Vital Signs Temperature 36.9 C 10/11/24 20:20 Pulse 84 10/11/24 20:20 Respiratory Rate 16 10/11/24 20:20 Blood Pressure 153/89 H 10/11/24 20:20 Pulse Oximetry 98 10/11/24 20:20 Temperature 36.9 C 10/11/24 20:20 Pulse 84 10/11/24 20:20 Respiratory Rate 16 10/11/24 20:20 Blood Pressure 153/89 H 10/11/24 20:20 Pulse Oximetry 98 10/11/24 20:20 Pain Level 4 10/11/24 20:20 Medical Decision Making 39-year-old male presenting with lumbar strain no indication for x-ray as it was no fall or significant trauma and I think unlikely to be helpful with diagnosis. Will give a single dose of Decadron and treat with cyclobenzaprine warm compresses. Recheck in 1 week recommended early return precautions reviewed and patient expressed understanding. No evidence of cauda equina syndrome PFSH All Active Problems (Updated 10/11/24 @ 20:38 by HOWARD Grayson) Lumbar strain (Acute) Diverticulitis (Chronic) Osteochondritis dissecans of right knee (Acute) Contracture of right knee (Acute) Loose body of right knee (Acute) Surgical History Hx of arthroscopy of knee Social History Smoking/Tobacco Use Status: Current every day Tobacco Type: e-cigarettes Smoking risk assessment performed?: Yes Alcohol Intake: current Alcohol Intake frequency: 0-2 drinks per day Alcohol type: beer Drug use: Never Substance use type: does not use Housing: house Current gender identity: male Do you feel safe at home: Yes Do you feel safe in your relationship?: Yes
== END 2024-10-11 20:58 | disposition home or self-care (01) ==
LOC: ER 21:03
PROVIDERS: Emergency Provider Physician Assistant; PCP Nurse Practitioner Family
DX: S39.012A Strain of muscle, fascia and tendon of lower back, initial encounter (principal); F17.290 Nicotine dependence, other tobacco product, uncomplicated; X50.0XXA Overexertion from strenuous movement or load, initial encounter
CPT/HCPCS: 99283; J1100; J1885

== ENCOUNTER 2024-10-25 17:36 | Outpatient (REF) | payer OTHER, SELFPAY ==
[2024-10-25 19:53] LABS: HCT 43.1 % (40.0-50.0); HGB 14.7 g/dL (13.5-17.5); MCH 29.8 pg (27.0-33.0); MCHC 34.1 % (32.0-36.0); MCV 87 fL (80-95); MPV 10.1 fL (8.0-11.0); Platelet Count 313 10^3/uL (130-400); RBC 4.93 10^6/uL (4.36-5.78); RDW 12.3 % (11.8-14.1); RDW-SD 39.4 fL; WBC 9.75 10^3/uL (4.4-10.8)
[2024-10-25 20:08] LABS: Hemoglobin A1C 5.3 % (<5.7)
[2024-10-25 20:09] LABS: Total Iron Binding Capacity 331 ug/dL (250-450)
[2024-10-25 20:13] LABS: Iron < 5 ug/dL (65-175)
[2024-10-25 20:19] LABS: ALT 43 U/L (16-63); AST 23 U/L (15-37); Albumin 4.5 g/dL (3.4-5.0); Alkaline Phosphatase 100 U/L (46-116); Anion Gap 8.4 mmol/L (3-11); BUN 19 mg/dL (7-18); Bilirubin, Direct 0.1 mg/dL (0.0-0.2); Bilirubin, Total 0.6 mg/dL (0.2-1.0); CO2 31.6 mmol/L (21.0-32.0); Calcium 9.6 mg/dL (8.5-10.1); Calculated LDL 129 mg/dL (<100); Chloride 101 mmol/L (98-107); Cholesterol 212 mg/dL (<200); Estimated GFR 114.02 (mL/min/1.73m2); Glucose 102 mg/dL (74-106); HDL Cholesterol 65 mg/dL (>or=40); Potassium 4.3 mmol/L (3.5-5.1); Sodium 141 mmol/L (136-145); Total Protein 7.9 g/dL (6.4-8.2); Triglyceride 91 mg/dL (<150)
[2024-10-25 20:43] LABS: Ferritin 322 ng/mL (26-388)
[2024-10-26 19:42] LABS: HIV-1/2 Ag & Ab Screen Negative (Negative)
[2024-10-26 19:46] LABS: Hepatitis C Ab w Rflx HCV PCR Negative (Negative)
== END 2024-10-25 17:37 | disposition home or self-care (01) ==
LOC: NCHCN 17:36
PROVIDERS: PCP Nurse Practitioner Family; Visit Provider Nurse Practitioner Family
DX: Z00.00 Encounter for general adult medical examination without abnormal findings (principal)
CPT/HCPCS: 80053; 80061; 85027; 86803; 87389; 82248; 82728; 83036; 83540; 83550

== ENCOUNTER 2024-11-14 12:02 | Outpatient (REF) | payer OTHER, SELFPAY ==
[2024-11-14 16:13] LABS: Iron 147 ug/dL (65-175)
== END 2024-11-14 12:03 | disposition home or self-care (01) ==
LOC: NCHCN 12:02
PROVIDERS: PCP Nurse Practitioner Family; Visit Provider Nurse Practitioner Family
DX: Z83.49 Family history of other endocrine, nutritional and metabolic diseases (principal)
CPT/HCPCS: 83540